=== PATIENT | male | born 1990 | race Caucasian/White ===

== ENCOUNTER 2024-12-27 10:30 | Emergency (ER) | payer MEDICAID, OTHER ==
[~2024-12-27] VITALS: Ht 172.7 cm; Wt 87.0 kg
[2024-12-27 10:31] VITALS: PULSE 92; RESP 14; O2SAT 100
[2024-12-27 10:45] VITALS: BP 133/66; TEMP 36.7; O2SAT 100
[2024-12-27] MEDS: ACETAMINOPHEN 325MG TABLET PO ONE (11:52)
[2024-12-27 11:58] LABS: BASOPHILS % 0.1 % (0.0-2.0); EOSINOPHILS % 0.1 % (0.0-5.0); HEMOGLOBIN. 13.4 g/dL (14.0-18.0); MEAN CORPUSCULAR HEMOGLOBIN 29.1 pg (28.0-32.0); MEAN CORPUSCULAR HGB CONC 33.5 g/dL (31.0-37.0); MEAN PLATELET VOLUME 8.3 fl (7.4-10.4); NEUTROPHILS % 78.8 % (40.0-76.0); PLATELET 224 x1000/uL (130-400); RED CELL DISTRIBUTION WIDTH 13.2 % (11.6-14.6)
[2024-12-27 12:07] LABS: CHLORIDE 103 mEq/L (98-107); SODIUM 136 mEq/L (136-145)
[2024-12-27 12:08] LABS: CARBON DIOXIDE 27 mEq/L (21-32)
[2024-12-27 12:09] LABS: CALCIUM 9.6 mg/dL (8.7-10.4)
[2024-12-27 12:13] LABS: CREATININE 0.9 mg/dL (0.6-1.3); GLUCOSE 97 mg/dL (70-105)
[2024-12-27 12:14] LABS: UREA NITROGEN BLOOD 11 mg/dL (9-23)
[2024-12-27 12:15] LABS: ALANINE AMINOTRANSFERASE 20 IU/L (10-49); ALBUMIN 4.3 g/dL (3.2-4.8); ASPARTATE AMINOTRANSFERASE 21 IU/L (<34)
[2024-12-27 12:16] LABS: BILIRUBIN TOTAL 1.1 mg/dL (0.1-1.0); PROTEIN TOTAL 7.3 g/dL (6.0-8.3)
[2024-12-27] MEDS: IOHEXOL-300 100 ML BOTTLE ONE (14:50)
== END 2024-12-27 15:03 | disposition home or self-care (01) ==
LOC: ER 10:30
DX: S30.1XXA Contusion of abdominal wall, initial encounter (principal); V43.52XA Car driver injured in collision with other type car in traffic accident, initial encounter; Y93.89 Activity, other specified; Y92.89 Other specified places as the place of occurrence of the external cause; Y99.8 Other external cause status
CPT/HCPCS: 80053; 85025; 36415; 71101; 74177; 99285; Q9967; Z7610